=== PATIENT | female | born 1995 ===

== ENCOUNTER 2019-10-18 09:32 | Emergency (ER) | payer OTHER ==
[~2019-10-18] VITALS: Ht 165.1 cm; Wt 86.2 kg
== END 2019-10-18 11:05 | disposition home or self-care (01) ==
LOC: ER 09:32
DX: T16.2XXA Foreign body in left ear, initial encounter (principal); X58.XXXA Exposure to other specified factors, initial encounter; Y93.89 Activity, other specified; Y92.89 Other specified places as the place of occurrence of the external cause; Y99.8 Other external cause status